=== PATIENT | female | born 1995 | race Caucasian/White ===

== ENCOUNTER 2020-10-31 04:28 | Emergency (ER) | payer MEDICAID ==
[~2020-10-31] VITALS: Ht 175.3 cm; Wt 117.9 kg
[2020-10-31 04:31] VITALS: BP 144/78
--- NOTE | 2020-10-31 04:31 | NUR ---
ATNA MOLINA. TAKEN TO CHAIR A
[2020-10-31 05:48] VITALS: BP 144/78
--- NOTE | 2020-10-31 05:48 | NUR ---
PATIENT BIB [facility] POLICE DEPT. PATIENT EXAMINED BY DR. ALVAREZ. PATIENT MEDICALLY CLEARED AND RELEASED IN CUSTODY IN STABLE CONDITION. ORIGINAL PRE-BOOK FORM GIVEN TO OFFICER Pedro Pablo VELAZQUEZ #[id number].
== END 2020-10-31 05:48 ==
LOC: MED 04:28 → EDSEX 04:28 → MED 05:48
DX: S50.312A Abrasion of left elbow, initial encounter (principal); Z02.89 Encounter for other administrative examinations; V98.8XXA Other specified transport accidents, initial encounter; Y92.89 Other specified places as the place of occurrence of the external cause; Y93.89 Activity, other specified; Y99.8 Other external cause status
CPT/HCPCS: 99283